=== PATIENT | male | born 1975 | race Caucasian/White ===

== ENCOUNTER 2019-08-20 04:57 | Emergency (ER) | payer SELFPAY ==
[~2019-08-20] VITALS: Ht 167.6 cm; Wt 76.4 kg
[~2019-08-20 04:57] MED LIST: MOTRIN 200200 MG/TAB PO
[2019-08-20 05:05] VITALS: BP 137/83; TEMP 97.6
[2019-08-20 08:24] VITALS: PULSE 84
== END 2019-08-20 08:25 | disposition home or self-care (01) ==
LOC: COL.ER 04:57
DX: S46.012A Strain of muscle(s) and tendon(s) of the rotator cuff of left shoulder, initial encounter (principal); Y04.0XXA Assault by unarmed brawl or fight, initial encounter; Y92.410 Unspecified street and highway as the place of occurrence of the external cause

== ENCOUNTER 2020-06-10 08:24 | Emergency (ER) | payer SELFPAY ==
[~2020-06-10] VITALS: Ht 167.6 cm; Wt 77.3 kg
[2020-06-10 08:37] VITALS: TEMP 98.1
[2020-06-10 09:57] VITALS: BP 141/65; PULSE 60
== END 2020-06-10 09:58 | disposition home or self-care (01) ==
LOC: COL.ER 08:24
DX: Z20.828 Contact with and (suspected) exposure to other viral communicable diseases (principal)

== ENCOUNTER 2021-05-31 10:22 | Emergency (ER) | payer SELFPAY ==
[~2021-05-31] VITALS: Ht 167.6 cm; Wt 77.3 kg
[2021-05-31 10:47] VITALS: BP 147/80; TEMP 98.1
[2021-05-31] MEDS ORDERED: ILOTYCIN5 MG/GM OP (11:16)
[2021-05-31 11:25] VITALS: PULSE 81
== END 2021-05-31 11:26 | disposition home or self-care (01) ==
LOC: COL.ER 10:22
DX: H10.9 Unspecified conjunctivitis (principal); F17.200 Nicotine dependence, unspecified, uncomplicated

== ENCOUNTER 2022-02-18 16:01 | Emergency (ER) | payer SELFPAY ==
[~2022-02-18] VITALS: Ht 167.6 cm; Wt 81.8 kg
[~2022-02-18 16:01] MED LIST changes: +ILOTYCIN5 MG/GM OP
[2022-02-18 16:12] VITALS: TEMP 98.8
[2022-02-18 17:30] VITALS: BP 128/88; PULSE 90
== END 2022-02-18 17:30 | disposition home or self-care (01) ==
LOC: COL.ER 16:01
DX: S29.011A Strain of muscle and tendon of front wall of thorax, initial encounter (principal); F17.210 Nicotine dependence, cigarettes, uncomplicated; X50.0XXA Overexertion from strenuous movement or load, initial encounter